=== PATIENT | female | born 1985 | race Caucasian/White ===

== ENCOUNTER 2024-04-16 06:18 | Emergency (ER) | payer MEDICAID ==
[~2024-04-16] VITALS: Ht 154.9 cm; Wt 64.0 kg
[2024-04-16 06:26] VITALS: O2SAT 95
[2024-04-16 07:13] VITALS: BP 122/50; PULSE 81; RESP 12; TEMP 98.6
== END 2024-04-16 07:15 | disposition home or self-care (01) ==
LOC: ER 06:18
DX: S60.455A Superficial foreign body of left ring finger, initial encounter (principal); I10 Essential (primary) hypertension; X58.XXXA Exposure to other specified factors, initial encounter; Y93.89 Activity, other specified; Y92.89 Other specified places as the place of occurrence of the external cause; Y99.8 Other external cause status
CPT/HCPCS: 99284